=== PATIENT | male | born 1955 | race American Indian/Alaskan Native ===

== ENCOUNTER 2020-10-15 12:11 | Emergency (ER) | payer OTHER ==
--- NOTE | 2020-10-15 12:18 | Emergency Department Report ---
ED CPR HPI - General Stated Complaint: CARDIAC ARREST Time Seen by Provider: 10/15/20 12:15 Source: EMS Mode of arrival: Stretcher Limitations: Other (cardiac arrest) - History of Present Illness Initial Comments: Chief complaint: Cardiac arrest HPI: This is a 65-year-old male with history of hypertension was found by family member unresponsive in the living room. EMS noticed blood at the nose. Initial rhythm asystole. Patient received ACLS algorithm resuscitation beginning at 1145. Patient was treated with 2 shocks, 4 doses of epinephrine, extra glottic device insertion, sodium bicarbonate. Rhythm remained in asystole. Complaint: found unresponsive Place: home Initial Findings in the Field: unresponsive ROSC in the Field: No Associated Injuries: Yes (Blood coming from nose) - Related Data Allergies Allergy/AdvReac Type Severity Reaction Status Date / Time No Known Allergies Allergy Unverified 06/03/14 15:18 ED Review of Systems ROS: Stated complaint: CARDIAC ARREST Other details as noted in HPI Comment: Unobtainable due to pts medical conditions (Lifeless patient cardiac arrest) ED Past Medical Hx - Past Medical History Previous Medical History?: Yes Hx Hypertension: Yes ED Physical Exam - General Limitations: Other (Lifeless no spontaneous movement) General appearance: other (Lifeless no spontaneous movement) - Head Head exam: Present: atraumatic, normocephalic, other (Bleeding from nose) - Eye Eye exam: Present: other (Dry cornea fixed dilated pupils) - ENT ENT exam: Present: other (Pale mucosa extra glottic airway device present) - Neck Neck exam: Present: normal inspection - Respiratory Respiratory exam: Present: other (No spontaneous respirations, equal coarse breath sounds) - Cardiovascular Cardiovascular Exam: Present: other (No palpable pulse no auscultated cardiac sounds) - GI/Abdominal GI/Abdominal exam: Present: distended, other (No ecchymoses) - Extremities Exam Extremities exam: Present: other (No pedal edema, no traumatic deformity of the extremities ) - Neurological Exam Neurological exam: Present: other (No spontaneous movement) - Psychiatric Psychiatric exam: Present: other (Lifeless no spontaneous movement) - Skin Skin exam: Present: intact ED Course Vital Signs 10/15/20 12:47 O2 Sat by Pulse 0 L Oximetry ED Medical Decision Making - Medical Decision Making Is a 65-year-old male who presents in cardiac arrest. Persistent asystole in spite 25 minutes of ACLS performed by EMS. Patient received additional epinephrine and calcium doses in emergency department with chest compressions. Time of 1212 I performed notification. Patient's mother daughter present as well as additional relative. According to and daughter, patient has been going to the doctor recently. No recent travel. No recent illness. No recent hospit alization. Critical care attestation.: If time is entered above; I have spent that time in minutes in the direct care of this critically ill patient, excluding procedure time. ED Disposition Clinical Impression: Cardiac arrest Disposition: 20 Is pt being admited?: No Does the pt Need Aspirin: No Condition: Stable Referrals: PRIMARY CARE, [Primary Care Provider] - 3-5 Days Time of Disposition: 12:12
[2020-10-15] MEDS ORDERED: CALCIUM CHLORIDE 1,000 MG/10 ML SYRINGE IV ONE (17:00)
[2020-10-15] MEDS ORDERED: EPINEPHrine 1 MG/10 ML SYRINGE ONE (17:00)
== END 2020-10-15 15:56 ==
LOC: ED 12:11
DX: I46.9 Cardiac arrest, cause unspecified (principal); I10 Essential (primary) hypertension
CPT/HCPCS: 92950; 99285; J0171